=== PATIENT | male | born 1970 | race Caucasian/White ===

== ENCOUNTER 2021-01-04 19:02 | Inpatient (IN) | payer OTHER ==
[2021-01-04 21:24] VITALS: BMI 22.0
[2021-01-04] MEDS ORDERED: MAGNESIUM HYDROX 2400MG/30ML ORAL SUSPENSION 30 ML CUP PO PRN (23:25)
[2021-01-04] MEDS ORDERED: MENTHOL/PHENOL 1 EACH UD MM PRN (23:25)
[2021-01-04] MEDS ORDERED: cloNIDine HCL 0.1 MG TABLET PO PRN (23:25)
[2021-01-04] MEDS ORDERED: IBUPROFEN 400 MG TABLET (FP) PO PRN (23:25)
[2021-01-04] MEDS ORDERED: MAGNESIUM CITRATE 300 ML BOTTLE PO PRN (23:25)
[2021-01-04] MEDS ORDERED: ACETAMINOPHEN 325 MG TABLET (FP) PO PRN ×2 (23:25)
[2021-01-04] MEDS ORDERED: NICOTINE POLACRILEX 2 MG GUM BUC PRN (23:25)
[2021-01-04] MEDS ORDERED: MAG HYDROX/AL HYDROX/SIMETH 30 ML UNIT-DOSE CUP PO PRN (23:25)
[2021-01-04] MEDS ORDERED: ONDANSETRON *ODT* 4 MG TABLET SL PRN (23:25)
[2021-01-04] MEDS ORDERED: METHADONE HCL 10 MG TABLET (FOR DETOX USE ONLY) PO ONE (23:25)
[2021-01-04] MEDS ORDERED: BISMUTH SUBSALICYLATE 524 MG/30 ML UD PO PRN (23:25)
[2021-01-05] MEDS ORDERED: METHADONE HCL 10 MG TABLET (FOR DETOX USE ONLY) ONE ×2 (00:47→10:48)
[2021-01-05] MEDS ORDERED: METHOCARBAMOL 500 MG TABLET ONE (04:16)
[2021-01-05] MEDS: METHOCARBAMOL 500 MG TABLET PO PRN (04:19)
[2021-01-05] MEDS ORDERED: METHADONE (DETOX) 20 MG, METHADONE (DETOX) 5 MG PO ONE (10:00)
[2021-01-05] MEDS ORDERED: NICOTINE 21 MG/24 HOURS TOPICAL PATCH ONE (10:47)
[2021-01-05] MEDS ORDERED: METHADONE HCL 5 MG TABLET (FOR DETOX USE ONLY) ONE (10:48)
[2021-01-05] MEDS: NICOTINE 21 MG/24 HOURS TOPICAL PATCH TD SCH (10:51)
[2021-01-05] MEDS: PRENATAL VITAMINS W/ FOLIC ACID TABLET (FP) PO SCH (10:58)
[2021-01-05 11:32] LABS: HEMATOCRIT 33.4 % (35.4-49); HEMOGLOBIN 11.4 GM/dL (11.7-16.9); MCH 29.5 pg (25.7-33.7); MCHC 34.1 g/dl (32.0-35.9); MEAN CELL VOLUME 86.6 fl (80-96); MEAN PLT VOLUME 7.7 fl (7.5-11.1); PLATELET COUNT 340 K/MM3 (134-434); RBC 3.85 M/mm3 (4.00-5.60); RDW 13.3 % (11.9-15.9); WHITE BLOOD COUNT 6.1 K/mm3 (4.0-10.0)
[2021-01-05 11:42] LABS: ALBUMIN 3.2 g/dl (3.4-5.0); CALCIUM 8.6 mg/dL (8.5-10.1)
[2021-01-05 11:43] LABS: BLOOD UREA NITROGEN 15.2 mg/dL (7-18)
[2021-01-05 11:45] LABS: CREATININE 0.6 mg/dL (0.55-1.3)
[2021-01-05 11:47] LABS: BILIRUBIN,TOTAL 0.5 mg/dL (0.2-1); TOT PROT 6.6 g/dl (6.4-8.2)
[2021-01-05] MEDS: DOXYCYCLINE HYCLATE 100 MG CAPSULE PO SCH ×2 (12:14→18:24)
[2021-01-05 12:31] LABS: HIV INTERPRETATION NEGATIVE (NEGATIVE)
[2021-01-05] MEDS: THIAMINE HCL 100 MG TABLET (FP) PO SCH (22:25)
[2021-01-05] MEDS: MELATONIN 5 MG TABLETS PO SCH (22:25)
[2021-01-06] MEDS ORDERED: METHADONE HCL 10 MG TABLET (FOR DETOX USE ONLY) PO ONE (10:00)
[2021-01-06] MEDS: NICOTINE 21 MG/24 HOURS TOPICAL PATCH TD SCH (10:24)
[2021-01-06] MEDS: PRENATAL VITAMINS W/ FOLIC ACID TABLET (FP) PO SCH (10:24)
[2021-01-06] MEDS: DOXYCYCLINE HYCLATE 100 MG CAPSULE PO SCH ×2 (10:55→18:31)
[2021-01-06] MEDS ORDERED: LIDOCAINE VISCOUS 2% ORAL/TOP 20 ML UNIT-DOSE CUP MM PRN (14:03)
[2021-01-06] MEDS: THIAMINE HCL 100 MG TABLET (FP) PO SCH (22:31)
[2021-01-06] MEDS: MELATONIN 5 MG TABLETS PO SCH (22:31)
[2021-01-07] MEDS ORDERED: METHADONE HCL 5 MG TABLET (FOR DETOX USE ONLY) ONE (09:17)
[2021-01-07] MEDS ORDERED: METHADONE HCL 10 MG TABLET (FOR DETOX USE ONLY) ONE (09:17)
[2021-01-07] MEDS ORDERED: METHADONE (DETOX) 10 MG, METHADONE (DETOX) 5 MG PO ONE (10:00)
[2021-01-07] MEDS: NICOTINE 21 MG/24 HOURS TOPICAL PATCH TD SCH (10:40)
[2021-01-07] MEDS: hydrOXYzine PAMOATE 25 MG CAPSULE (FP) PO PRN (10:40)
[2021-01-07] MEDS: PRENATAL VITAMINS W/ FOLIC ACID TABLET (FP) PO SCH (10:40)
[2021-01-07] MEDS: DOXYCYCLINE HYCLATE 100 MG CAPSULE PO SCH ×2 (10:41→17:35)
[2021-01-08] MEDS: THIAMINE HCL 100 MG TABLET (FP) PO SCH ×2 (00:17→22:18)
[2021-01-08] MEDS: MELATONIN 5 MG TABLETS PO SCH ×2 (00:17→22:17)
[2021-01-08 06:10] LABS: SARS-CoV-2 NAA Not Detected (Not Detected)
[2021-01-08] MEDS ORDERED: METHADONE HCL 10 MG TABLET (FOR DETOX USE ONLY) PO ONE (10:00)
[2021-01-08] MEDS: DOXYCYCLINE HYCLATE 100 MG TABLET PO SCH ×2 (10:17→17:41)
[2021-01-08] MEDS: PRENATAL VITAMINS W/ FOLIC ACID TABLET (FP) PO SCH (10:18)
[2021-01-08] MEDS: NICOTINE 21 MG/24 HOURS TOPICAL PATCH TD SCH (10:18)
[2021-01-08] MEDS: hydrOXYzine PAMOATE 25 MG CAPSULE (FP) PO PRN (22:18)
[2021-01-08] MEDS: METHOCARBAMOL 500 MG TABLET PO PRN (22:18)
[2021-01-09] MEDS ORDERED: METHADONE HCL 5 MG TABLET (FOR DETOX USE ONLY) PO ONE (06:00)
[2021-01-09 09:16] VITALS: BP 141/77; PULSE 89; TEMP 98.6
[2021-01-09] MEDS: PRENATAL VITAMINS W/ FOLIC ACID TABLET (FP) PO SCH (10:08)
[2021-01-09] MEDS: DOXYCYCLINE HYCLATE 100 MG TABLET PO SCH (10:08)
[2021-01-09] MEDS: NICOTINE 21 MG/24 HOURS TOPICAL PATCH TD SCH (10:09)
== END 2021-01-09 11:18 | disposition home or self-care (01) | DRG 773 ==
LOC: YASAS 19:02 → Y6N 01-05 12:49
PROVIDERS: ADMIT Allergy & Immunology; ATTEND Allergy & Immunology
PROC: HZ2ZZZZ Detoxification Services for Substance Abuse Treatment (ICD-10-PCS; principal; 2021-01-05)
DX: F11.23 Opioid dependence with withdrawal (principal); F15.20 Other stimulant dependence, uncomplicated; F17.210 Nicotine dependence, cigarettes, uncomplicated; F19.24 Other psychoactive substance dependence with psychoactive substance-induced mood disorder; D64.9 Anemia, unspecified; L02.31 Cutaneous abscess of buttock; Z56.0 Unemployment, unspecified; Z59.0 Homelessness
CPT/HCPCS: 36415; 80053; 85027; 86593; 86780; 86803; 87389; 93005; 93010; C9803; J0735; U0003; U0005

== ENCOUNTER 2021-08-02 14:28 | Inpatient (IN) | payer OTHER ==
[2021-08-02] MEDS ORDERED: MAGNESIUM HYDROX 2400MG/30ML ORAL SUSPENSION 30 ML CUP PO PRN (17:43)
[2021-08-02] MEDS ORDERED: MENTHOL/PHENOL 1 EACH UD MM PRN (17:43)
[2021-08-02] MEDS ORDERED: cloNIDine HCL 0.1 MG TABLET PO PRN (17:43)
[2021-08-02] MEDS ORDERED: ONDANSETRON *ODT* 4 MG TABLET SL PRN (17:43)
[2021-08-02] MEDS ORDERED: IBUPROFEN 400 MG TABLET (FP) PO PRN (17:43)
[2021-08-02] MEDS ORDERED: MAG HYDROX/AL HYDROX/SIMETH 30 ML UNIT-DOSE CUP PO PRN (17:43)
[2021-08-02] MEDS ORDERED: NICOTINE 10 MG CARTRIDGE (INHALER) IH PRN (17:43)
[2021-08-02] MEDS ORDERED: ACETAMINOPHEN 325 MG TABLET (FP) PO PRN ×2 (17:43)
[2021-08-02] MEDS ORDERED: methaDONE HCL 10 MG TABLET (FOR DETOX USE ONLY) PO ONE (17:43)
[2021-08-02] MEDS ORDERED: MAGNESIUM CITRATE 300 ML BOTTLE PO PRN (17:43)
[2021-08-02 18:38] VITALS: BMI 22.8
[2021-08-02] MEDS: hydrOXYzine PAMOATE 25 MG CAPSULE (FP) PO SCH ×2 (19:48→22:32)
[2021-08-02] MEDS: BISMUTH SUBSALICYLATE 524 MG/30 ML PO PRN ×2 (19:50→22:34)
[2021-08-02] MEDS: THIAMINE HCL 100 MG TABLET (FP) PO SCH (22:32)
[2021-08-02] MEDS: MELATONIN 5 MG TABLETS PO SCH (22:33)
[2021-08-03] MEDS: hydrOXYzine PAMOATE 25 MG CAPSULE (FP) PO SCH ×4 (06:17→17:46)
[2021-08-03] MEDS ORDERED: methaDONE HCL 10 MG TABLET (FOR DETOX USE ONLY) ONE (09:12)
[2021-08-03] MEDS: METHOCARBAMOL 500 MG TABLET PO PRN (10:26)
[2021-08-03] MEDS: PRENATAL VITAMINS W/ FOLIC ACID TABLET (FP) PO SCH (10:26)
[2021-08-03 14:48] LABS: HEMATOCRIT 39.6 % (35.4-49); MCH 28.2 pg (25.7-33.7); MCHC 32.8 g/dl (32.0-35.9); MEAN PLT VOLUME 7.6 fl (7.5-11.1); PLATELET COUNT 342 10^3/uL (134-434); RBC 4.61 M/mm3 (4.00-5.60); RDW 13.9 % (11.9-15.9); WHITE BLOOD COUNT 4.4 K/mm3 (4.0-10.0)
[2021-08-03 14:57] LABS: ALBUMIN 3.3 g/dl (3.4-5.0); BLOOD UREA NITROGEN 18.6 mg/dL (7-18)
[2021-08-03 14:59] LABS: BILIRUBIN,TOTAL 0.4 mg/dL (0.2-1); CALCIUM 8.8 mg/dL (8.5-10.1); CREATININE 0.8 mg/dL (0.55-1.3); TOT PROT 7.3 g/dl (6.4-8.2)
[2021-08-04] MEDS: THIAMINE HCL 100 MG TABLET (FP) PO SCH (00:23)
[2021-08-04] MEDS: MELATONIN 5 MG TABLETS PO SCH (00:23)
[2021-08-04] MEDS: hydrOXYzine PAMOATE 25 MG CAPSULE (FP) PO SCH ×5 (00:23→19:06)
[2021-08-04] MEDS: BISMUTH SUBSALICYLATE 524 MG/30 ML PO PRN (04:50)
[2021-08-04] MEDS ORDERED: methaDONE HCL 10 MG TABLET (FOR DETOX USE ONLY) PO ONE (10:00)
[2021-08-04] MEDS: PRENATAL VITAMINS W/ FOLIC ACID TABLET (FP) PO SCH (10:19)
[2021-08-04] MEDS: METHOCARBAMOL 500 MG TABLET PO PRN (10:20)
[2021-08-04] MEDS: LOPERAMIDE HCL 2 MG CAPSULE PO PRN ×2 (13:51→19:06)
[2021-08-05] MEDS: hydrOXYzine PAMOATE 25 MG CAPSULE (FP) PO SCH ×6 (00:16→23:21)
[2021-08-05] MEDS: THIAMINE HCL 100 MG TABLET (FP) PO SCH ×2 (00:16→23:21)
[2021-08-05] MEDS: MELATONIN 5 MG TABLETS PO SCH ×2 (00:17→23:21)
[2021-08-05] MEDS ORDERED: methaDONE HCL 10 MG TABLET (FOR DETOX USE ONLY) ONE (09:13)
[2021-08-05] MEDS: LOPERAMIDE HCL 2 MG CAPSULE PO PRN ×2 (10:20→18:12)
[2021-08-05] MEDS: PRENATAL VITAMINS W/ FOLIC ACID TABLET (FP) PO SCH (10:20)
[2021-08-06] MEDS: hydrOXYzine PAMOATE 25 MG CAPSULE (FP) PO SCH ×5 (05:17→23:25)
[2021-08-06] MEDS: LOPERAMIDE HCL 2 MG CAPSULE PO PRN (05:19)
[2021-08-06] MEDS ORDERED: methaDONE HCL 10 MG TABLET (FOR DETOX USE ONLY) PO ONE (10:00)
[2021-08-06] MEDS: PRENATAL VITAMINS W/ FOLIC ACID TABLET (FP) PO SCH (10:18)
[2021-08-06] MEDS: METHOCARBAMOL 500 MG TABLET PO PRN (10:21)
[2021-08-06] MEDS: THIAMINE HCL 100 MG TABLET (FP) PO SCH (23:25)
[2021-08-06] MEDS: MELATONIN 5 MG TABLETS PO SCH (23:25)
[2021-08-07] MEDS: hydrOXYzine PAMOATE 25 MG CAPSULE (FP) PO SCH ×2 (05:29→10:18)
[2021-08-07 09:02] VITALS: BP 132/80; PULSE 83; TEMP 98.9
[2021-08-07] MEDS: PRENATAL VITAMINS W/ FOLIC ACID TABLET (FP) PO SCH (10:18)
[2021-08-07] MEDS: METHOCARBAMOL 500 MG TABLET PO PRN (10:18)
== END 2021-08-07 11:25 | disposition home or self-care (01) | DRG 773 ==
LOC: YASAS 14:28 → Y6N 18:26
PROVIDERS: ADMIT Allergy & Immunology; ATTEND Allergy & Immunology
PROC: HZ2ZZZZ Detoxification Services for Substance Abuse Treatment (ICD-10-PCS; principal; 2021-08-02)
DX: F11.23 Opioid dependence with withdrawal (principal); F15.20 Other stimulant dependence, uncomplicated; F17.210 Nicotine dependence, cigarettes, uncomplicated; L08.9 Local infection of the skin and subcutaneous tissue, unspecified; Z86.19 Personal history of other infectious and parasitic diseases
CPT/HCPCS: 36415; 80053; 85027; 86593; 86780; C9803; J0735; U0003; U0005

== ENCOUNTER 2021-12-08 11:53 | Inpatient (IN) | payer OTHER ==
[2021-12-08 14:16] VITALS: BMI 21.9
[2021-12-08] MEDS ORDERED: MAGNESIUM HYDROX 2400MG/30ML ORAL SUSPENSION 30 ML CUP PO PRN (18:07)
[2021-12-08] MEDS ORDERED: hydrOXYzine PAMOATE 25 MG CAPSULE (FP) PO PRN (18:07)
[2021-12-08] MEDS ORDERED: MAG HYDROX/AL HYDROX/SIMETH 30 ML UNIT-DOSE CUP PO PRN (18:07)
[2021-12-08] MEDS ORDERED: LOPERAMIDE HCL 2 MG CAPSULE PO PRN (18:07)
[2021-12-08] MEDS ORDERED: ONDANSETRON *ODT* 4 MG TABLET SL PRN (18:07)
[2021-12-08] MEDS ORDERED: BENZOCAINE/MENTHOL (CHLORASEPTIC ) LOZENGE MM PRN (18:07)
[2021-12-08] MEDS ORDERED: MELATONIN 5 MG TABLETS PO PRN (18:07)
[2021-12-08] MEDS ORDERED: BISMUTH SUBSALICYLATE 524 MG/30 ML PO PRN (18:07)
[2021-12-08] MEDS ORDERED: ACETAMINOPHEN 325 MG TABLET (FP) PO PRN (18:07)
[2021-12-08] MEDS ORDERED: P-EPHED 60MG/TRIPROLIDI 2.5MG TABLET PO PRN (18:07)
[2021-12-08] MEDS ORDERED: DICYCLOMINE HCL 10 MG CAPSULE PO PRN (18:07)
[2021-12-08] MEDS ORDERED: MAGNESIUM CITRATE 300 ML BOTTLE PO PRN (18:07)
[2021-12-08] MEDS ORDERED: IBUPROFEN 400 MG TABLET (FP) PO ONE (18:22)
[2021-12-08] MEDS: IBUPROFEN 400 MG TABLET (FP) PO PRN (18:28)
[2021-12-09] MEDS: THIAMINE HCL 100 MG TABLET (FP) PO SCH ×2 (00:03→22:58)
[2021-12-09] MEDS: METHOCARBAMOL 500 MG TABLET PO PRN ×2 (06:56→13:31)
[2021-12-09] MEDS: IBUPROFEN 400 MG TABLET (FP) PO PRN ×2 (06:56→13:32)
[2021-12-09] MEDS ORDERED: methaDONE HCL 10 MG TABLET (FOR DETOX USE ONLY) ONE (11:58)
[2021-12-09] MEDS: PRENATAL VITAMINS W/ FOLIC ACID TABLET (FP) PO SCH (12:04)
[2021-12-09 13:39] LABS: HEMATOCRIT 35.7 % (35.4-49); HEMOGLOBIN 12.2 GM/dL (11.7-16.9); MCH 29.8 pg (25.7-33.7); MCHC 34.2 g/dl (32.0-35.9); MEAN PLT VOLUME 7.2 fl (7.5-11.1); PLATELET COUNT 330 10^3/uL (134-434); RDW 13.7 % (11.9-15.9); WHITE BLOOD COUNT 5.1 K/mm3 (4.0-10.0)
[2021-12-09 13:49] LABS: ALBUMIN 3.5 g/dl (3.4-5.0); BILIRUBIN,TOTAL 0.8 mg/dL (0.2-1); BLOOD UREA NITROGEN 16.6 mg/dL (7-18)
[2021-12-09 13:50] LABS: CREATININE 0.7 mg/dL (0.55-1.3)
[2021-12-09 13:51] LABS: TOT PROT 6.8 g/dl (6.4-8.2)
[2021-12-10] MEDS: METHOCARBAMOL 500 MG TABLET PO PRN ×3 (02:57→17:30)
[2021-12-10] MEDS: IBUPROFEN 400 MG TABLET (FP) PO PRN ×3 (04:18→17:32)
[2021-12-10] MEDS ORDERED: methaDONE HCL 10 MG TABLET (FOR DETOX USE ONLY) PO ONE (10:00)
[2021-12-10] MEDS: PRENATAL VITAMINS W/ FOLIC ACID TABLET (FP) PO SCH (10:21)
[2021-12-10] MEDS: NICOTINE POLACRILEX 2 MG GUM BUC PRN (10:27)
[2021-12-10] MEDS: ACETAMINOPHEN 325 MG TABLET (FP) PO PRN (21:13)
[2021-12-10] MEDS: THIAMINE HCL 100 MG TABLET (FP) PO SCH (23:44)
[2021-12-11] MEDS: IBUPROFEN 400 MG TABLET (FP) PO PRN ×3 (05:36→19:01)
[2021-12-11] MEDS ORDERED: methaDONE HCL 10 MG TABLET (FOR DETOX USE ONLY) ONE (08:57)
[2021-12-11] MEDS ORDERED: diazePAM 5 MG TABLET PO PRN (09:56)
[2021-12-11] MEDS: PRENATAL VITAMINS W/ FOLIC ACID TABLET (FP) PO SCH (10:09)
[2021-12-11] MEDS: METHOCARBAMOL 500 MG TABLET PO PRN ×2 (10:10→19:01)
[2021-12-11] MEDS: LIDOCAINE 5% TOPICAL PATCH TP SCH (11:15)
[2021-12-11 12:09] LABS: SARS-CoV-2 NAA Not Detected (Not Detected)
[2021-12-11] MEDS: NICOTINE POLACRILEX 2 MG GUM BUC PRN (19:03)
[2021-12-11] MEDS: LIDOCAINE PATCH REMOVAL MC SCH (23:13)
[2021-12-11] MEDS: THIAMINE HCL 100 MG TABLET (FP) PO SCH (23:14)
[2021-12-12] MEDS: IBUPROFEN 400 MG TABLET (FP) PO PRN (06:34)
[2021-12-12] MEDS: METHOCARBAMOL 500 MG TABLET PO PRN (06:34)
[2021-12-12] MEDS ORDERED: methaDONE HCL 10 MG TABLET (FOR DETOX USE ONLY) PO ONE (10:00)
[2021-12-12] MEDS: LIDOCAINE 5% TOPICAL PATCH TP SCH (10:24)
[2021-12-12] MEDS: PRENATAL VITAMINS W/ FOLIC ACID TABLET (FP) PO SCH (10:26)
[2021-12-12] MEDS: NICOTINE POLACRILEX 2 MG GUM BUC PRN (18:10)
[2021-12-12] MEDS: LIDOCAINE PATCH REMOVAL MC SCH (22:53)
[2021-12-12] MEDS: THIAMINE HCL 100 MG TABLET (FP) PO SCH (22:53)
[2021-12-13] MEDS: ACETAMINOPHEN 325 MG TABLET (FP) PO PRN (02:25)
[2021-12-13] MEDS: METHOCARBAMOL 500 MG TABLET PO PRN (06:00)
[2021-12-13] MEDS: IBUPROFEN 400 MG TABLET (FP) PO PRN (06:05)
[2021-12-13 09:34] VITALS: BP 132/76; PULSE 84; TEMP 98.1
[2021-12-13] MEDS: PRENATAL VITAMINS W/ FOLIC ACID TABLET (FP) PO SCH (09:35)
[2021-12-13] MEDS: LIDOCAINE 5% TOPICAL PATCH TP SCH (09:35)
== END 2021-12-13 12:12 | disposition home or self-care (01) | DRG 773 ==
LOC: YASAS 11:53 → UNDOADMIN 18:06 → Y6N 18:06
PROVIDERS: ADMIT Allergy & Immunology; ATTEND Allergy & Immunology
PROC: HZ2ZZZZ Detoxification Services for Substance Abuse Treatment (ICD-10-PCS; principal; 2021-12-08)
DX: F11.23 Opioid dependence with withdrawal (principal); F10.230 Alcohol dependence with withdrawal, uncomplicated; F15.20 Other stimulant dependence, uncomplicated; F17.210 Nicotine dependence, cigarettes, uncomplicated; F19.282 Other psychoactive substance dependence with psychoactive substance-induced sleep disorder; M54.50 Low back pain, unspecified; Z86.19 Personal history of other infectious and parasitic diseases; Z56.0 Unemployment, unspecified; Z59.00 Homelessness unspecified
CPT/HCPCS: 36415; 80053; 85027; 86593; 86780; C9803-CS; U0003; U0005

== ENCOUNTER 2023-08-17 16:50 | Inpatient (IN) | payer OTHER ==
[2023-08-17 17:59] VITALS: BMI 21.1
[2023-08-17] MEDS ORDERED: MAG HYDROX/AL HYDROX/SIMETH 30 ML UNIT-DOSE CUP PO PRN (18:28)
[2023-08-17] MEDS ORDERED: LOPERAMIDE HCL 2 MG CAPSULE PO PRN (18:28)
[2023-08-17] MEDS ORDERED: IBUPROFEN 400 MG TABLET (FP) PO PRN (18:28)
[2023-08-17] MEDS ORDERED: BENZONATATE 200 MG CAPSULE PO PRN (18:28)
[2023-08-17] MEDS ORDERED: POLYETHYLENE GLYCOL (HEALTHYLAX) 3350 17 GM PACKET PO PRN (18:28)
[2023-08-17] MEDS ORDERED: NALOXONE HCL 0.4 MG/ML VIAL IM PRN (18:28)
[2023-08-17] MEDS ORDERED: NALOXONE HCL (KLOXXADO) 8 MG SPRAY NS PRN (18:28)
[2023-08-17] MEDS ORDERED: BISMUTH SUBSALICYLATE 524 MG/30 ML PO PRN (18:28)
[2023-08-17] MEDS ORDERED: ONDANSETRON *ODT* 4 MG TABLET SL PRN (18:28)
[2023-08-17] MEDS ORDERED: IBUPROFEN 600 MG TABLET (FP) PO PRN (18:28)
[2023-08-17] MEDS ORDERED: DICYCLOMINE HCL 10 MG CAPSULE PO PRN (18:28)
[2023-08-17] MEDS ORDERED: guaiFENesin 600 MG TABLET.ER (FP) PO PRN (18:28)
[2023-08-17] MEDS ORDERED: BENZOCAINE/MENTHOL (CHLORASEPTIC ) LOZENGE MM PRN (18:28)
[2023-08-17] MEDS ORDERED: methaDONE HCL 10 MG TABLET (FOR DETOX USE ONLY) ONE (19:14)
[2023-08-17] MEDS: methaDONE HCL 10 MG TABLET (FOR DETOX USE ONLY) PO ONE (19:21)
[2023-08-17] MEDS: THIAMINE HCL 100 MG TABLET (FP) PO SCH (21:10)
[2023-08-17] MEDS: cloNIDine HCL 0.1 MG TABLET PO PRN (21:10)
[2023-08-17] MEDS: MELATONIN 5 MG TABLETS PO SCH (21:11)
[2023-08-18 10:02] LABS: HEMATOCRIT 32.9 % (35.4-49); HEMOGLOBIN 11.2 GM/dL (11.7-16.9); MCH 29.6 pg (25.7-33.7); MEAN CELL VOLUME 87.2 fl (80-96); MEAN PLT VOLUME 7.5 fl (7.5-11.1); PLATELET COUNT 255 10^3/uL (134-434); RBC 3.77 M/mm3 (4.00-5.60); WHITE BLOOD COUNT 8.8 K/mm3 (4.0-10.0)
[2023-08-18 10:05] LABS: CHLORIDE 98 mmol/L (98-107); POTASSIUM 3.7 mmol/L (3.5-5.1); SODIUM 135 mmol/L (136-145)
[2023-08-18 10:12] LABS: ALBUMIN 3.2 g/dl (3.4-5.0); ANION GAP 6 mmol/L (4-13); CALCIUM 8.7 mg/dL (8.5-10.1); CO2 30 mmol/L (21-32); GLUCOSE,RANDOM 87 mg/dL (74-106)
[2023-08-18 10:13] LABS: CREATININE 0.7 mg/dL (0.55-1.3)
[2023-08-18 10:14] LABS: SGOT/AST 19 U/L (15-37)
[2023-08-18 10:15] LABS: BILIRUBIN,TOTAL 0.3 mg/dL (0.2-1); SGPT/ALT 21 U/L (13-61)
[2023-08-18 10:16] LABS: ALK PHOS 65 U/L (45-117)
[2023-08-18] MEDS: hydrOXYzine PAMOATE 25 MG CAPSULE (FP) PO PRN (10:20)
[2023-08-18] MEDS: NICOTINE POLACRILEX 4 MG GUM BUC PRN (10:20)
[2023-08-18] MEDS: PRENATAL VITAMINS W/ FOLIC ACID TABLET (FP) PO SCH (10:20)
[2023-08-18] MEDS: NICOTINE 21 MG/24 HOURS TOPICAL PATCH TD SCH (10:20)
[2023-08-18] MEDS: METHOCARBAMOL 500 MG TABLET PO PRN (10:21)
[2023-08-18] MEDS: MAGNESIUM HYDROX 2400MG/30ML ORAL SUSPENSION 30 ML CUP PO PRN (10:21)
[2023-08-18] MEDS: ACETAMINOPHEN 325 MG TABLET (FP) PO PRN (16:42)
[2023-08-18] MEDS: ACETAMINOPHEN 325 MG TABLET (FP) PO ONE (17:22)
[2023-08-18] MEDS: AZITHROMYCIN 250 MG TABLET PO ONE (18:13)
[2023-08-18] MEDS: FLUTICASONE PROP 0.05% 16 GM NASAL SPRAY NS SCH (22:48)
[2023-08-19] MEDS: methaDONE HCL 10 MG TABLET (FOR DETOX USE ONLY) PO ONE (09:53)
[2023-08-19] MEDS: AZITHROMYCIN 250 MG TABLET PO SCH (09:53)
[2023-08-19] MEDS: OSELTAMIVIR PHOSPHATE 75 MG CAPSULE PO SCH (09:53)
[2023-08-19 18:40] LABS: EPI CELLS 3 /uL (0-25.1); HYALINE CASTS 0 /uL (0-3.1); URINE APPEARANCE CLEAR; URINE BACTERIA 0 /uL (0-1359); URINE BILIRUBIN NEGATIVE (NEGATIVE); URINE COLOR YELLOW; URINE GLUCOSE (UA) NEGATIVE (NEGATIVE); URINE KETONE TRACE (NEGATIVE); URINE LEUK ESTERASE NEGATIVE (NEGATIVE); URINE NITRITE NEGATIVE (NEGATIVE); URINE PROTEIN NEGATIVE (NEGATIVE); URINE RBC 128 /uL (0-23.9); URINE WBC 7 /uL (0-25.8)
[2023-08-20 09:46] VITALS: PULSE 85; RESP 16; TEMP 97.7
[2023-08-20 10:39] LABS: POTASSIUM 3.4 mmol/L (3.5-5.1)
[2023-08-20 10:48] LABS: BASO % 0.3 % (0-2.0); HEMATOCRIT 32.3 % (35.4-49); HEMOGLOBIN 10.6 GM/dL (11.7-16.9); LYMPH % 20.2 % (8-40); MCH 29.4 pg (25.7-33.7); MCHC 32.8 g/dl (32.0-35.9); MEAN CELL VOLUME 89.5 fl (80-96); MEAN PLT VOLUME 7.7 fl (7.5-11.1); MONO % 7.2 % (3.8-10.2); NEUT % 71.3 % (42.8-82.8); PLATELET COUNT 212 10^3/uL (134-434); RBC 3.61 M/mm3 (4.00-5.60); RDW 13.1 % (11.9-15.9); WHITE BLOOD COUNT 6.4 K/mm3 (4.0-10.0)
[2023-08-20 11:16] LABS: CALCIUM 8.5 mg/dL (8.5-10.1)
[2023-08-20 11:18] LABS: BLOOD UREA NITROGEN 12.6 mg/dL (7-18)
[2023-08-20 11:21] LABS: CREATININE 0.8 mg/dL (0.55-1.3)
[2023-08-20 12:46] VITALS: BP 114/74
[2023-08-20 12:54] LABS: HIV INTERPRETATION NEGATIVE (NEGATIVE)
[2023-08-20] MEDS: POTASSIUM CHLORIDE ORAL LIQUID 20 MEQ/15 ML PO ONE (14:28)
[2023-08-20] MEDS ORDERED: POTASSIUM CHLORIDE ORAL LIQUID 20 MEQ/15 ML PO SCH (22:00)
[2023-08-21] MEDS ORDERED: methaDONE HCL 10 MG TABLET (FOR DETOX USE ONLY) PO ONE (10:00)
== END 2023-08-20 14:54 | disposition left against medical advice (07) | DRG 770 ==
LOC: YASAS 16:50 → Y3N 19:59 → Y6N 08-20 13:36
PROVIDERS: ADMIT Allergy & Immunology; ATTEND Surgery
PROC: HZ2ZZZZ Detoxification Services for Substance Abuse Treatment (ICD-10-PCS; principal; 2023-08-17)
DX: F11.23 Opioid dependence with withdrawal (principal); F15.20 Other stimulant dependence, uncomplicated; F17.210 Nicotine dependence, cigarettes, uncomplicated; J10.1 Influenza due to other identified influenza virus with other respiratory manifestations; J18.9 Pneumonia, unspecified organism; M54.50 Low back pain, unspecified; G89.29 Other chronic pain; R76.8 Other specified abnormal immunological findings in serum; Z56.0 Unemployment, unspecified; Z59.00 Homelessness unspecified
CPT/HCPCS: 0241U-QW; 36415; 71046-TC-FY; 80048; 80053; 80307; 81003; 85025; 85027; 86593; 86780; 87086; 87389; 87635